=== PATIENT | female | born 1950 | race Caucasian/White ===

== ENCOUNTER 2017-02-20 09:20 | Emergency (ER) | payer MEDICARE, BC ==
[2017-02-20] MEDS ORDERED: NITROGLYCERIN 0.4 MG TAB SL PRN (09:28)
[2017-02-20] MEDS ORDERED: SODIUM CHLORIDE 0.9% FLUSH 10 ML SOL IV PRN (09:28)
[2017-02-20 09:41] LABS: BASOPHILS % (AUTO) 2 % (0-3); EOSINOPHILS % (AUTO) 1 % (0-9); HEMATOCRIT 41 % (35-47); MEAN CORPUSCULAR HGB CONC 35.5 gm/dl (32.0-36.0); MEAN CORPUSCULAR VOLUME 92 fL (81-99); NEUTROPHILS % (AUTO) 64.9 % (37-80)
[2017-02-20 09:56] LABS: GLOM FILT RATE 72 mL/min (>60); POTASSIUM 3.9 mMol/L (3.5-5.1); SODIUM 138 mMol/L (136-145)
[2017-02-20 10:25] VITALS: PULSE 62; RESP 20; TEMP 98.4; O2SAT 100
[2017-02-20 10:51] VITALS: BP 182/86
== END 2017-02-20 11:18 | disposition home or self-care (01) | DRG 313 ==
LOC: ED 09:20
DX: R07.89 Other chest pain (principal); R06.02 Shortness of breath
CPT/HCPCS: 36415; 71010; 80048; 82550; 84484; 85025; 85610; 85730; 93005; 99284

== ENCOUNTER 2017-07-21 16:00 | Inpatient (IN) | payer MEDICARE, BC ==
[2017-07-21] MEDS ORDERED: SODIUM CHLORIDE 0.9% 1000 ML SOL IV SCH (16:30)
[2017-07-21] MEDS ORDERED: NAPROXEN 500 MG TAB PO PRN (17:26)
[2017-07-21] MEDS ORDERED: LEVOTHYROXINE SODIUM 50 MCG TAB PO SCH (17:30)
[2017-07-21] MEDS ORDERED: SODIUM CHLORIDE IV ONE (17:43)
[2017-07-21] MEDS ORDERED: SODIUM CHLORIDE 0.9% 1000ML 1,000 ML IV SCH (18:30)
[2017-07-21] MEDS ORDERED: BIMATOPROST EACHEYE SCH (21:00)
[2017-07-21] MEDS ORDERED: METOPROLOL SUCCINATE 50 MG ER TAB PO ONE (21:00)
[2017-07-21 21:17] LABS: CALCIUM 8.3 mg/dl (8.5-10.1)
[2017-07-21] MEDS: Non-Formulary Medication MISC (Fluticasone Propionate 1 SPR) NAS SCH (22:03)
[2017-07-21] MEDS: SODIUM CHLORIDE 0.9% 1000ML 1,000 ML IV SCH (22:04)
[2017-07-22 07:25] LABS: BASOPHILS % (AUTO) 1 % (0-3); EOSINOPHILS % (AUTO) 2 % (0-9); HEMATOCRIT 33 % (35-47); MEAN CORPUSCULAR HGB CONC 35.7 gm/dl (32.0-36.0); MEAN CORPUSCULAR VOLUME 95 fL (81-99)
[2017-07-22 07:27] LABS: CALCIUM 8.7 mg/dl (8.5-10.1); POTASSIUM 4.2 mMol/L (3.5-5.1)
[2017-07-22] MEDS: SODIUM CHLORIDE 0.9% 1000ML 1,000 ML IV SCH ×3 (08:18→22:49)
[2017-07-22] MEDS: ASPIRIN EC 81 MG PO SCH (08:19)
[2017-07-22] MEDS ORDERED: TIMOLOL MALEATE 0.5% EACHEYE SCH (09:00)
[2017-07-22] MEDS ORDERED: METOPROLOL SUCCINATE 50 MG ER TAB PO SCH ×2 (09:00→17:40)
[2017-07-22] MEDS ORDERED: SODIUM CHLORIDE 0.9% 500 ML 500 ML IV ONE (09:07)
[2017-07-22] MEDS: GUAIFENESIN 200 MG/10 ML SOL PO PRN ×2 (09:38→21:05)
[2017-07-22] MEDS: AMLODIPINE 5 MG TAB PO SCH (09:50)
[2017-07-22] MEDS: Non-Formulary Medication MISC (Fluticasone Propionate 1 SPR) NAS SCH (10:04)
[2017-07-22] MEDS: FLUTICASONE PROPIONATE SPR NAS SCH ×2 (13:53→21:04)
[2017-07-22 16:19] LABS: CALCIUM 8.1 mg/dl (8.5-10.1); POTASSIUM 4.3 mMol/L (3.5-5.1)
[2017-07-22] MEDS ORDERED: LEVOTHYROXINE SODIUM 50 MCG TAB PO SCH (17:30)
[2017-07-22] MEDS ORDERED: METOPROLOL SUCCINATE 50 MG ER TAB PO ONE (18:58)
[2017-07-22] MEDS: BIMATOPROST 2.5 ML SOL EACHEYE SCH (21:04)
[2017-07-23] MEDS: SODIUM CHLORIDE 0.9% 1000ML 1,000 ML IV SCH ×3 (01:52→17:56)
[2017-07-23] MEDS: GUAIFENESIN 200 MG/10 ML SOL PO PRN ×3 (03:24→20:44)
[2017-07-23] MEDS ORDERED: NAPROXEN 500 MG TAB ONE (06:02)
[2017-07-23] MEDS ORDERED: LEVOTHYROXINE SODIUM 50 MCG TAB PO SCH (07:00)
[2017-07-23 07:57] LABS: CALCIUM 8.4 mg/dl (8.5-10.1); POTASSIUM 3.6 mMol/L (3.5-5.1)
[2017-07-23] MEDS: ASPIRIN EC 81 MG PO SCH (08:27)
[2017-07-23] MEDS: FLUTICASONE PROPIONATE SPR NAS SCH ×2 (08:28→20:44)
[2017-07-23] MEDS: AMLODIPINE 5 MG TAB PO SCH (08:28)
[2017-07-23] MEDS: TIMOLOL MALEATE 0.5% OPHTHAL SOL EACHEYE SCH (08:28)
[2017-07-23] MEDS: BIMATOPROST 2.5 ML SOL EACHEYE SCH (20:44)
[2017-07-24] MEDS: SODIUM CHLORIDE 0.9% 1000ML 1,000 ML IV SCH (00:52)
[2017-07-24] MEDS: GUAIFENESIN 200 MG/10 ML SOL PO PRN ×2 (02:02→08:57)
[2017-07-24] MEDS ORDERED: LEVOTHYROXINE SODIUM 50 MCG TAB PO SCH (07:00)
[2017-07-24 07:18] LABS: CALCIUM 8.2 mg/dl (8.5-10.1); MEAN CORPUSCULAR HGB CONC 34.4 gm/dl (32.0-36.0); POTASSIUM 3.8 mMol/L (3.5-5.1)
[2017-07-24 08:09] VITALS: BP 163/88; PULSE 58; RESP 14; TEMP 97.8; O2SAT 99
[2017-07-24] MEDS: FLUTICASONE PROPIONATE SPR NAS SCH (08:57)
[2017-07-24] MEDS: ASPIRIN EC 81 MG PO SCH (08:57)
[2017-07-24] MEDS: TIMOLOL MALEATE 0.5% OPHTHAL SOL EACHEYE SCH (08:57)
[2017-07-24] MEDS: AMLODIPINE 5 MG TAB PO SCH (08:57)
== END 2017-07-24 14:01 | disposition home or self-care (01) | DRG 153 ==
LOC: ACUTE CARE 16:00 → UNDOADMIN 16:11
PROVIDERS: ADMIT Family Medicine; ATTEND Family Medicine
DX: J06.9 Acute upper respiratory infection, unspecified (principal); E87.1 Hypo-osmolality and hyponatremia; I10 Essential (primary) hypertension; R53.1 Weakness
CPT/HCPCS: 36415; 80048; 85025; 85027; 99070; 99232; 99238